=== PATIENT | female | born 1970 | race Two or more races ===

== ENCOUNTER → 2024-09-22 | Outpatient (CLI) | payer OTHER ==
[2024-09-22 13:53] LABS: Basophils # (auto) 0.1 10 ^3/uL (0-0.2); Basophils % (auto) 1.3 % (0.0-2.0); Eosinophils # (auto) 0.1 10 ^3/uL (0-0.8); Hematocrit 39.9 % (36.0-46.0); Hemoglobin 13.3 g/dL (12.2-16.2); Lymphocytes # (auto) 1.8 10 ^3/uL (0.4-5.4); Lymphocytes % (auto) 30.1 % (10.0-50.0); Mean Corpuscular Hemoglobin 30.4 pg (28.0-32.0); Mean Corpuscular Hgb Conc. 33.3 g/dL (32.0-36.0); Mean Corpuscular Volume 91.4 fL (80.0-100.0); Monocytes # (auto) 0.3 10 ^3/uL (0-1.3); Monocytes % (auto) 5.6 % (0.0-12.0); Neutrophils # (auto) 3.6 10 ^3/uL (1.6-8.6); Nucleated Red Blood Cells % 0.1 %; Platelet Count (auto) 200 10^3/uL (140-450); Red Blood Cells 4.37 10^6/uL (4.0-5.20); Red Cell Distribution Width 13.4 % (11.8-14.3); White Blood Cell 5.9 10^3/uL (4.4-10.8)
[2024-09-22 14:07] LABS: Alanine Aminotransferase 18 U/L (7-40); Alkaline Phosphatase 94 U/L (46-116); Anion Gap 10 (5-15); Aspartate Aminotransferase 17 U/L (13-40); Blood Urea Nitrogen 15 mg/dL (9-23); CRP High Sensitivity 0.18 mg/dL (<1.0); Calcium 10.3 mg/dL (8.7-10.4); Carbon Dioxide 27 mmol/L (20-31); Chloride 103 mmol/L (98-107); Potassium 3.7 mmol/L (3.5-5.1); Sodium 140 mmol/L (136-145)
[2024-09-22 14:08] LABS: Bilirubin, Total 0.7 mg/dL (0.2-1.0)
[2024-09-22 14:11] LABS: Albumin 4.9 g/dL (3.2-4.8); Glucose 122 mg/dL (74-106); Total Protein 8.5 g/dL (5.7-8.2)
[2024-09-22 15:08] LABS: Erythrocyte Sedimentation Rate 21 mm/hr (0-20)
[2024-09-23 10:06] LABS: Complement C3 139 mg/dL (82-167); Rheumatoid Arthritis Factor <10.0 IU/mL (<14.0)
[2024-09-23 11:08] LABS: Anti-Nuclear Antibody Direct Negative (Negative); Anti-dsDNA Antibody 3 IU/mL (0-9); Antiscleroderma-70 Antibody <0.2 AI (0.0-0.9); RNP Antibody <0.2 AI (0.0-0.9); Sjogren's Anti-SS-A Antibody <0.2 AI (0.0-0.9); Sjogren's Anti-SS-B Antibody <0.2 AI (0.0-0.9); Smith Antibody <0.2 AI (0.0-0.9)
== END | disposition home or self-care (01) ==
LOC: LAB 13:11
PROVIDERS: ATTEND Internal Medicine
DX: N39.0 Urinary tract infection, site not specified (principal); R55 Syncope and collapse
CPT/HCPCS: 36415; 80053; 84439; 84443; 85025; 85652; 86141; 86160; 86225; 86235; 86376; 86431; 87040

== ENCOUNTER → 2024-09-23 | Outpatient (CLI) | payer OTHER ==
[2024-09-23 13:52] LABS: INR 1.06 (0.9-1.15); Prothrombin Time 11.2 sec (9.3-11.8)
[2024-09-24 06:07] LABS: Hepatitis B Core Total Antibod Negative (Negative)
[2024-09-26 08:23] LABS: Hepatitis B Surface Antibody Negative (Negative)
[2024-09-26 08:31] LABS: Hepatitis B Surface Antigen Negative (Negative)
[2024-09-26 08:52] LABS: Hepatitis A Ab IgM Negative; Hepatitis B Core IgM Negative (Negative)
[2024-09-26 08:53] LABS: Hepatitis C Antibody Negative (Negative)
[2024-09-26 08:57] LABS: Hepatitis A Total Antibody Negative (Negative)
[2024-09-26 09:07] LABS: Liver-Kidney Microsomal Ab 0.8 Units (0.0-20.0)
[2024-09-26 13:07] LABS: Deamidated Gliadin IgA Ab 6 units (0-19); Deamidated Gliadin IgG Ab 4 units (0-19)
== END | disposition home or self-care (01) ==
LOC: LAB 12:47
PROVIDERS: ATTEND Internal Medicine
DX: R77.8 Other specified abnormalities of plasma proteins (principal); R89.9 Unspecified abnormal finding in specimens from other organs, systems and tissues
CPT/HCPCS: 36415; 83516; 85610; 86256; 86705; 86706; 86708; 86709; 86803; 87086; 87340

== ENCOUNTER 2024-10-29 11:09 | Emergency (ER) | payer OTHER ==
[~2024-10-29] VITALS: Ht 172.7 cm; Wt 75.0 kg
[2024-10-29 11:47] VITALS: BP 139/84; PULSE 80; RESP 16; TEMP 97.9; O2SAT 99
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
[2024-10-29] MEDS: ACETAMINOPHEN 500 MG TAB or CAP PO ONE (12:49)
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
[2024-10-29] MEDS ORDERED: ACET-1080 PO (13:03)
[2024-10-29] MEDS ORDERED: METH-1182 PO (13:03)
== END 2024-10-29 13:16 | disposition home or self-care (01) ==
LOC: EDBD 11:09 → ER 11:09
DX: S16.1XXA Strain of muscle, fascia and tendon at neck level, initial encounter (principal); S46.911A Strain of unspecified muscle, fascia and tendon at shoulder and upper arm level, right arm, initial encounter; S00.83XA Contusion of other part of head, initial encounter; F41.9 Anxiety disorder, unspecified; V89.2XXA Person injured in unspecified motor-vehicle accident, traffic, initial encounter; Y93.89 Activity, other specified; Y92.410 Unspecified street and highway as the place of occurrence of the external cause; Y99.8 Other external cause status
CPT/HCPCS: 70110; 72040; 73030

== ENCOUNTER 2025-02-17 07:05 | Outpatient (CLI) | payer OTHER ==
[~2025-02-17] VITALS: Ht 162.6 cm; Wt 81.6 kg
[~2025-02-17 07:05] MED LIST: ACET-1080 PO; METH-1182 PO
--- NOTE | 2025-02-17 08:58 | DVHCARD ---
Cardiology Stress Test [place] Treadmill Stress Test [place] Referring MD: MD Alexis Protocol: Umesh (with cardiolite) Reason for referral: Other (Syncope) Target heart Rate:@85%: 141 Percent MPHR: 166 METS: 10.1 Resting Heart rate: 64 Resting Blood Pressure: 131/86 Exercise Heart Rate: 162 Exercise Blood Pressure: 196/87 Reason for Termination of Test: Shortness of breath Baseline EKG: Sinus rhythm with non-specific lateral T-wave chnages Stress EKG: Sinus tachycardia with artifact Functional Capacity: Mod. Decreased Heart Rate Response: Adequate Blood Pressure Response: Hypertensive Clinical response: Inconclusive Arrhythmia?: No Cardiolite Injected?: Yes ST-T Changes: Inconclusive Probability of Inducible Ische: Perfusion result pending Comments: ECG with artifact, non-discernible reading Date of Service: Feb 17, 2025 Billing Provider: PERRY PENN Cardiology Common Codes: PROCEDURE ONLY Treadmill W/Cardiolite Nuclear: [id number], INTERP, RPT PERRY PENN Feb 17, 2025 08:58
--- NOTE | 2025-02-17 16:01 | DVHSR ---
APPROVED REPORT Exam: Nuclear Stress Test BMI: 0 Stress Test Details HR Max Heart Rate (APMHR): 166.990536 bpm Target HR (85% APMHR): 141.101188 bpm BP ECG Stress ECG Conclusion normal perfusion scan lvef 68% NM EXAM: Myocardial Perfusion REST/STRESS Imaging Protocol: Rest Tc-99m/Stress Tc-99m 1 day Resting Data Rest SPECT myocardial perfusion imaging was performed in supine position 45 minutes following the int ravenous injection of 10.6 mCi of Tc-99m Sestamibi. Time of rest injection: 07:35 Date: 02/17/2025 Time of rest imagin:20 Date: 02/17/2025 Administration Route: IV Administration Site: Right Hand Exercise Stress At peak stress, the patient was injected intravenously with 29.7mCi of Tc-99m Sestamibi. Time of stress injection: 08:49 Date: 02/17/2025 Time of stress imagin:49 Date: 02/17/2025 Administration Route: IV Administration Site: Right Hand Gated Stress SPECT was performed 60 minutes after stress injection. The images were gated to evaluate regional wall motion and calculate left ventricular ejection fracti on. Stress only was performed in the Supine position. Nuclear Conclusion Nuclear Findings: negative for ischemia normal perfusion scan lvef 68%
== END 2025-02-17 17:00 | disposition home or self-care (01) ==
LOC: XYW 07:05
PROVIDERS: ATTEND Internal Medicine
DX: I49.3 Ventricular premature depolarization (principal); R55 Syncope and collapse
CPT/HCPCS: 78452; 93017; A9500

== ENCOUNTER → 2025-05-03 | Outpatient (CLI) | payer OTHER ==
[2025-05-03 08:53] LABS: Urine Protein, UAD Negative (Negative)
== END | disposition home or self-care (01) ==
LOC: LAB 06:02
PROVIDERS: ATTEND Urology
DX: N39.0 Urinary tract infection, site not specified (principal)
CPT/HCPCS: 81001; 87086

== ENCOUNTER 2025-06-24 09:47 | Day surgery (SDC) | payer OTHER ==
[2025-06-22 14:09] LABS: Hematocrit 39.7 % (36.0-46.0); Hemoglobin 13.2 g/dL (12.2-16.2); Mean Corpuscular Hemoglobin 30.6 pg (28.0-32.0); Mean Corpuscular Volume 92.2 fL (80.0-100.0); Nucleated Red Blood Cells % 0.0 %
[2025-06-22 14:24] LABS: INR 1.03 (0.9-1.15); Partial Thromboplastin Time 30.1 SEC (24.5-34.5); Prothrombin Time 10.9 sec (9.3-11.8)
[2025-06-22 15:08] LABS: Alanine Aminotransferase 26 U/L (7-40); Albumin 4.8 g/dL (3.2-4.8); Alkaline Phosphatase 80 U/L (46-116); Anion Gap 9 (5-15); BUN/Creatinine Ratio 15.2 (10.0-20.0); Blood Urea Nitrogen 15 mg/dL (9-23); Calcium 10.2 mg/dL (8.7-10.4); Carbon Dioxide 27 mmol/L (20-31); Chloride 104 mmol/L (98-107); Glucose 86 mg/dL (74-106); Potassium 4.2 mmol/L (3.5-5.1); Sodium 140 mmol/L (136-145)
[2025-06-22 15:09] LABS: Bilirubin, Total 0.5 mg/dL (0.2-1.0)
[2025-06-22 15:13] LABS: Total Protein 8.6 g/dL (5.7-8.2)
[~2025-06-24] VITALS: Ht 167.6 cm; Wt 82.1 kg
[~2025-06-24 09:47] MED LIST changes: -ACET-1080 PO; -METH-1182 PO; +METO25TA36 PO
[2025-06-24] MEDS: MIDAZOLAM HCL 2MG/2ML 2ml VIAL (1mg/ml) ONE ×2 (11:10→11:24)
[2025-06-24] MEDS: fentaNYL CITRATE 100 MCG/2 ML VL ONE (11:10)
--- NOTE | 2025-06-24 11:30 | DVHNC2 ---
Procedure - DATE: JUNE 24, 2025 PROCEDURE PERFORMED BY: KARLA ALCALA MD REFERRING PROVIDER: MARCOS LOPEZ MD PROCEDURE PERFORMED: 1. COLONOSCOPY WITH MODERATE SEDATION PREPROCEDURE DIAGNOSIS: 1. COLON CANCER SCREENING OF CHRONIC CONSTIPATION 2. CONSTIPATION POSTPROCEDURE DIAGNOSIS: 1. INTERNAL HEMORRHOIDS OTHERWISE NORMAL COLONOSCOPY INDICATIONS FOR PROCEDURE: THE PATIENT IS A 54-YEAR-OLD FEMALE WHO PRESENTS FOR OUTPATIENT COLONOSCOPY FOR SCREENING. SHE HAS A HISTORY CONSTIPATION. MEDICATIONS USED: 7MG OF VERSED IV AND 100 MCG OF FENTANYL IV DETAILS OF THE PROCEDURE: Informed consent was obtained after risks benefits and alternatives were discussed at length with the patient. The patient gave consent to the procedure as well as a medication used for sedation. She was placed in the left lateral decubitus position. Digital rectal exam showed internal hemorrhoids and small external hemorrhoids. An Olympus variable torsion pediatric colonoscope was inserted into the rectum and advanced to the cecum. The cecum was identified by the ileocecal valve and the appendiceal orifice. The scope was then withdrawn. The prep was good with only small amounts and stool. [place] bowel prep score of nine was noted. There were no large polyps, masses, strictures, or arteriovenous malformation seen. Retroflexion showed internal hemorrhoids. More than six months withdrawal time was noted. The patient tolerated the procedure well. COLONOSCOPY START TIME: 11 15 CECUM TIME: 1121 COLONOSCOPY END TIME: 1127 IMPRESSION: 1. SMALL INTERNAL AND EXTERNAL HEMORRHOIDS OTHERWISE NORMAL COLONOSCOPY RECOMMENDATIONS: 1. FOLLOW UP WITH PRIMARY CARE PHYSICIAN 2. HIGH-FIBER DIET 3. REPEAT COLONOSCOPY IN 10 YEARS UNLESS OTHERWISE INDICATED BY SYMPTOMS OR FAMILY HISTORY 4. CONSIDER TREATMENT FOR IBS C WITH LINZESS, TRULANCE, IBSRELA OR OTHER MEDICATION I WOULD LIKE TO THANK DR. LOPEZ FOR THIS REFERRAL KARLA ALCALA MD Jun 24, 2025 11:30
[2025-06-24 11:32] VITALS: PULSE 78; RESP 16; TEMP 97.8; O2SAT 97
[2025-06-24 12:02] VITALS: BP 125/80; PULSE 75; RESP 12; O2SAT 99
== END 2025-06-24 12:22 | disposition home or self-care (01) ==
LOC: GI 09:47
PROVIDERS: ATTEND Specialist
DX: K59.00 Constipation, unspecified (principal); K64.8 Other hemorrhoids; K64.4 Residual hemorrhoidal skin tags; Z79.82 Long term (current) use of aspirin; Z98.890 Other specified postprocedural states; Z79.899 Other long term (current) drug therapy
CPT/HCPCS: 36415; 45378; 80053; 85025; 85610; 85730; J2250; J3010; 99152